=== PATIENT | male | born 1985 | race American Indian/Alaskan Native ===

== ENCOUNTER 2019-12-27 15:44 | Emergency (ER) | payer SELFPAY ==
--- NOTE | 2019-12-27 15:52 | Emergency Department Report ---
Blank Doc - Documentation Documentation: 34-year-old male that presents with left sided headache. Stated OTC medications not helping and not typical migrane headache. Denies any injuries or trauma. Exam: Neuro exam unremarkable. Normal symmetrical smiling and strength. normal gait. A/O x3. EMOI. PERLLA. This initial assessment/diagnostic orders/clinical plan/treatment(s) is/are subject to change based on patient's health status, clinical progression and re- assessment by fellow clinical providers in the ED. Further treatment and workup at subsequent clinical providers discretion. Patient/guardians urged not to elope from the ED as their condition may be serious if not clinically assessed and managed. Initial orders include: 1- Patient sent to [facility] for further evaluation and treatment 2- CT head
[2019-12-27 15:54] VITALS: BP 104/45
--- NOTE | 2019-12-27 16:31 | Cat Scan Report ---
CT head/brain wo con INDICATION / CLINICAL INFORMATION: 34 years Male; MAIN. Facial numbness and headache TECHNIQUE: Routine CT head without contrast. All CT scans at this location are performed using CT dos e reduction for ALARA by means of automated exposure control. COMPARISON: None. FINDINGS: BRAIN / INTRACRANIAL CONTENTS: No acute hemorrhage, mass effect, midline shift, hydrocephalus, or acu te, large territorial infarct. No signs of significant atrophy or chronic infarct. No significant whi te matter abnormality seen. CRANIOCERVICAL JUNCTION: No significant abnormality. ORBITS: No significant abnormality of visualized orbits. SINUSES / MASTOIDS: No significant abnormality in the visualized paranasal sinuses or mastoid air virgie ls. ADDITIONAL FINDINGS: None. IMPRESSION: 1. No focal mass, hemorrhage, hydrocephalus, or acute, large territorial infarct. Signer Name: Florentin Muñoz MD, III Signed: 12/27/2019 4:27 PM Workstation Name: [id number]
[2019-12-27] MEDS ORDERED: PROMETHAZINE 25 MG TAB PO ONE (19:33)
[2019-12-27] MEDS ORDERED: KETOROLAC 30 MG/1 ML INJ IM ONE (19:33)
[2019-12-27] MEDS ORDERED: BUTALB/ACETAMINOPHEN/CAFFEINE TAB PO ONE (19:33)
[2019-12-27] MEDS ORDERED: dexAMETHasone 20 MG/5 ML VIAL IM ONE (19:33)
--- NOTE | 2019-12-27 21:02 | Emergency Department Report ---
ED General Adult HPI - General Chief complaint: Head Injury Stated complaint: HEADACHE Time Seen by Provider: 12/27/19 15:50 Source: patient, EMS Mode of arrival: Ambulatory Limitations: No Limitations - History of Present Illness Initial comments: Patient is a 34-year-old -[place] male with history of chronic migraine headaches who presents to the ED with intractable persistent severe left frontal temporal headache that radiates to the left retro-orbital area with left facial tingling and numbness as well as palsy the last 2 days. Patient also complains of nausea and vomiting intermittently since the onset of the symptoms. Patient states that he has been taking [id number] anti-inflammatory and pain medications including Aleve and Tylenol with no relief. Patient denies dizziness, syncope, neck pain, vision loss, loss of consciousness, seizures, abdominal pain, chest pain, shortness of breath, palpitations, sore throat, nasal and sinus congestion, fever and chills or cough. MD Complaint: HEADACHE; Left facial tingling and numbness; left facial palsy -: Sudden, days(s) (2) Location: head, face Radiation: non-radiation Severity scale (0 -10): 10 Quality: aching, sharp Consistency: constant Improves with: none Worsens with: none Associated Symptoms: denies other symptoms, headaches, nausea/vomiting. denies: confusion, cough, diaphoresis, fever/chills, loss of appetite, malaise, rash, seizure, shortness of breath, syncope, weakness Treatments Prior to Arrival: NSAID - Related Data Previous Rx's Medication Instructions Recorded Last Taken Type Butalb/Acetamin/Caff 50-325-40 1 - 2 tab PO Q6HR PRN #12 tab 12/27/19 Unknown Rx [Fioricet 50-325-40] Ketorolac [Toradol] 10 mg PO Q8H PRN #20 tablet 12/27/19 Unknown Rx Ondansetron [Zofran Odt] 4 mg PO Q6HR PRN #15 tab.rapdis 12/27/19 Unknown Rx Allergies Allergy/AdvReac Type Severity Reaction Status Date / Time No Known Allergies Allergy Unverified 12/27/19 15:47 ED Review of Systems ROS: Stated complaint: HEADACHE Other details as noted in HPI Constitutional: denies: chills, fever Eyes: other (Photophobia). denies: eye pain, eye discharge, vision change ENT: denies: ear pain, throat pain Respiratory: denies: cough, shortness of breath, wheezing Cardiovascular: denies: chest pain, palpitations Endocrine: no symptoms reported Gastrointestinal: denies: abdominal pain, nausea, diarrhea Genitourinary: denies: urgency, dysuria Musculoskeletal: denies: back pain, joint swelling, arthralgia Skin: denies: rash, lesions Neurological: headache. denies: weakness, paresthesias Psychiatric: denies: anxiety, depression Hematological/Lymphatic: denies: easy bleeding, easy bruising ED Past Medical Hx - Past Medical History Hx Headaches / Migraines: Yes - Surgical History Past Surgical History?: No - Social History Smoking Status: Current Every Day Smoker - Medications Home Medications: Home Medications Medication Instructions Recorded Confirmed Last Taken Type Butalb/Acetamin/Caff 50-325-40 1 - 2 tab PO Q6HR PRN #12 tab 12/27/19 Unknown Rx [Fioricet 50-325-40] Ketorolac [Toradol] 10 mg PO Q8H PRN #20 tablet 12/27/19 Unknown Rx Ondansetron [Zofran Odt] 4 mg PO Q6HR PRN #15 tab.rapdis 12/27/19 Unknown Rx ED Physical Exam - General Limitations: No Limitations General appearance: alert, in no apparent distress - Head Head exam: Present: atraumatic, normocephalic, normal inspection - Eye Eye exam: Present: normal appearance, PERRL, EOMI Pupils: Present: normal accommodation - ENT ENT exam: Present: normal exam, normal orophraynx, mucous membranes moist, TM's normal bilaterally, normal external ear exam - Neck Neck exam: Present: normal inspection, full ROM - Respiratory Respiratory exam: Present: normal lung sounds bilaterally. Absent: respiratory distress, wheezes, rhonchi, chest wall tenderness, decreased breath sounds, prolonged expiratory - Cardiovascular Cardiovascular Exam: Present: regular rate, normal rhythm, normal heart sounds. Absent: systolic murmur, diastolic murmur, rubs, gallop - GI/Abdominal GI/Abdominal exam: Present: soft, normal bowel sounds. Absent: distended, tenderness, rebound, hyperactive bowel sounds, hypoactive bowel sounds - Extremities Exam Extremities exam: Present: normal inspection, full ROM, normal capillary refill - Back Exam Back exam: Present: normal inspection, full ROM. Absent: tenderness, CVA tenderness (R), CVA tenderness (L), muscle spasm, paraspinal tenderness, vertebral tenderness - Neurological Exam Neurological exam: Present: alert, oriented X3, CN II-XII intact, normal gait, reflexes normal - Psychiatric Psychiatric exam: Present: normal affect, normal mood - Skin Skin exam: Present: warm, dry, intact, normal color. Absent: rash ED Course Vital Signs 12/27/19 12/27/19 15:50 20:02 Temperature 98.3 F Pulse Rate 76 Respiratory 18 18 Rate Blood Pressure 104/45 O2 Sat by Pulse 100 Oximetry ED Medical Decision Making - Radiology Data Radiology results: report reviewed, image reviewed Findings [facility] [address] [place] [address] Cat Scan Report Signed Patient: ARMIDA RUIZ JR MR#: [id number] : 1985 Acct:[id number] Age/Sex: 34 / M ADM Date: 12/27/19 Loc: ED Attending Dr: Ordering Physician: JOELLE KINNEY NP Date of Service: 12/27/19 Procedure(s): CT head/brain wo con Accession Number(s): [id number] cc: JOELLE KINNEY NP CT head/brain wo con INDICATION / CLINICAL INFORMATION: 34 years Male; MAIN. Facial numbness and headache TECHNIQUE: Routine CT head without contrast. All CT scans at this location are performed using CT dose reduction for ALARA by means of automated exposure control. COMPARISON: None. FINDINGS: BRAIN / INTRACRANIAL CONTENTS: No acute hemorrhage, mass effect, midline shift, hydrocephalus, or acute, large territorial infarct. No signs of significant atrophy or chronic infarct. No significant white matter abnormality seen. CRANIOCERVICAL JUNCTION: No significant abnormality. ORBITS: No significant abnormality of visualized orbits. SINUSES / MASTOIDS: No significant abnormality in the visualized paranasal sinuses or mastoid air cells. ADDITIONAL FINDINGS: None. IMPRESSION: 1. No focal mass, hemorrhage, hydrocephalus, or acute, large territorial infarct. Signer Name: Florentin Muñoz MD, III Signed: 12/27/2019 4:27 PM Workstation Name: [id number] Transcribed By: HR Dictated By: Florentin Muñoz MD Electronically Authenticated By: Florentin Muñoz MD Signed Date/Time: 12/27/191626 DD/ 23 TD/TT: - Medical Decision Making This is a 34-year-old -[place] male with history of chronic migraine headaches who presents to the ED with intractable persistent severe left frontal temporal headache that radiates to the left retro-orbital area with left facial tingling and numbness as well as palsy the last 2 days. Patient also complains of nausea and vomiting intermittently since the onset of the symptoms. Patient states that he has been taking [id number] anti-inflammatory and pain medications including Aleve and Tylenol with no relief. In the ED, patient is alert and oriented x3 and is not in distress but appears to be in pain. Patient was treated for pain in the ED. The head CT scan without contrast shows no acute intracranial abnormalities or hemorrhage. On reevaluation, patient's pain is well controlled with medications. Patient was able to eat in the ED room with no nausea or vomiting and no difficulty after being treated for pain. Patient left the ED with taking his discharge paperwork from the ED. - Differential Diagnosis migraine headache; tension headache; davidson's palsy; sinusitis Critical care attestation.: If time is entered above; I have spent that time in minutes in the direct care of this critically ill patient, excluding procedure time. ED Disposition Clinical Impression: Nausea and vomiting in adult Migraine headache with aura Qualifiers: Status migrainosus presence: with status migrainosus Intractability: not intractable Qualified Code(s): G43.101 - Migraine with aura, not intractable, with status migrainosus Disposition: TO HOME OR SELFCARE Is pt being admited?: No Does the pt Need Aspirin: No Condition: Stable Instructions: Migraine Headache (ED), Acute Nausea and Vomiting (ED) Additional Instructions: The head CT scan without contrast shows no acute intracranial abnormalities or hemorrhage. Therefore take medication with food, drink plenty of fluids and follow-up with your primary care physician in 3 to 5 days for reevaluation. Return to the ED immediately if symptoms get worse. Prescriptions: Butalb/Acetamin/Caff 50-325-40 [Fioricet 50-325-40] 1 - 2 tab PO Q6HR PRN #12 tab PRN Reason: Headache Ketorolac [Toradol] 10 mg PO Q8H PRN #20 tablet PRN Reason: Pain Ondansetron [Zofran Odt] 4 mg PO Q6HR PRN #15 tab.rapdis PRN Reason: Nausea Referrals: [facility] [Provider Group] - 3-5 Days Time of Disposition: 20:40 Print Language: LITHUANIAN
== END 2019-12-27 21:37 | disposition home or self-care (01) ==
LOC: ED 15:44
DX: G43.101 Migraine with aura, not intractable, with status migrainosus (principal); R11.2 Nausea with vomiting, unspecified; F17.200 Nicotine dependence, unspecified, uncomplicated; Z79.899 Other long term (current) drug therapy
CPT/HCPCS: 70450; 96372; 99284; J1100; J1885; Q0169

== ENCOUNTER 2021-10-19 14:27 | Emergency (ER) | payer SELFPAY ==
[2021-10-19] MEDS ORDERED: KETOROLAC 10 MG TAB PO ONE ×2 (15:29→21:00)
[2021-10-19] MEDS ORDERED: CYCLOBENZAPRINE 10 MG TAB PO ONE ×3 (15:29→21:00)
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
[2021-10-19 20:50] VITALS: BP 103/62
== END 2021-10-19 20:35 | disposition home or self-care (01) ==
LOC: ED 14:27
DX: S39.012A Strain of muscle, fascia and tendon of lower back, initial encounter (principal); S16.1XXA Strain of muscle, fascia and tendon at neck level, initial encounter; G43.909 Migraine, unspecified, not intractable, without status migrainosus; F17.200 Nicotine dependence, unspecified, uncomplicated; Z79.899 Other long term (current) drug therapy; V87.7XXA Person injured in collision between other specified motor vehicles (traffic), initial encounter; Y93.89 Activity, other specified; Y92.488 Other paved roadways as the place of occurrence of the external cause; Y99.8 Other external cause status
CPT/HCPCS: 72040; 72100; 99283